=== PATIENT | female | born 1935 | race Caucasian/White ===

== ENCOUNTER 2017-05-19 17:37 | Inpatient (IN) ==
[2017-05-19] MEDS ORDERED: Ondansetron 4 MG/2 ML VIAL IVP ONE (17:40)
[2017-05-19] MEDS ORDERED: 0.9 % Sodium Chloride 1,000 ML IVC ONE (17:40)
[2017-05-19] MEDS ORDERED: *HR* Morphine 2 MG/ML SYRINGE IVP ONE (17:40)
[2017-05-19] MEDS ORDERED: *HR* Morphine 2 MG/ML SYRINGE IVP PRN ×2 (17:44→22:58)
--- NOTE | 2017-05-19 17:45 | Emergency Department Note ---
Disposition Clinical Impression: Elevated troponin, Hiatal hernia Abdominal pain Qualifiers: Abdominal location: left upper quadrant Qualified Code(s): R10.12 - Left upper quadrant pain Cholelithiasis Qualifiers: Cholelithiasis location: gallbladder Cholecystitis presence: without cholecystitis Biliary obstruction: with biliary obstruction Qualified Code(s): K80.21 - Calculus of gallbladder without cholecystitis with obstruction Hypertension Qualifiers: Hypertension type: unspecified Qualified Code(s): I10 - Essential (primary) hypertension Disposition: Admitted As Inpatient Condition: Fair Abdominal Pain HPI - General Chief Complaint: ED Abdominal Pain Stated Complaint: Constipation/ Abdominal pain Time Seen by Provider: 05/19/17 17:38 Source: patient, EMS Mode of arrival: EMS Limitations: age Nursing Notes Reviewed: Yes Vital Signs Reviewed: Yes - History of Present Illness HPI Narrative: 82-year-old female history of dementia, hypertension presents for evaluation of left upper quadrant pain as well as some constipation. Patient was brought in via EMS from [place]. EMS provide additional history stating that the patient did have difficulty stooling over the past 2 days but was given a bowel regimen had normal stools this morning. Patient states the left upper side pain does not radiate. No aggravating or alleviating factors identified. States that she does not take any medicines. Denies any vomiting. Denies any fevers. Reports some chest pain from earlier today. Patient denies any dysuria or difficulty with urination. Patient is a DNR CC. Pt Subjective Complaint: abdominal pain Onset (ago): hour(s) Consistency: constant Location: L flank Improves with: nothing Worsens with: nothing - Related Data Previous Rx's Medication Instructions Recorded Aspirin 81 mg PO DAILY #30 tab.chew 09/16/16 Atorvastatin [Lipitor] 20 mg PO HS #30 tablet 09/16/16 Ferrous Sulfate 325 mg PO DAILY #60 tablet 09/16/16 Sennosides/Docusate Sodium [Senna 1 each PO DAILY #30 tablet 09/16/16 Plus] Allergies Allergy/AdvReac Type Severity Reaction Status Date / Time No Known Allergies Allergy Verified 09/15/16 14:13 All systems ED: reviewed and negative except as stated. Constitutional: Reports: as per HPI. Denies: fever Eyes: Reports: as per HPI ENT ED: Reports: as per HPI Cardiovascular: Reports: as per HPI, chest pain Respiratory: Reports: as per HPI. Denies: dyspnea Gastrointestinal: Reports: as per HPI, abdominal pain, constipation. 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 Absent: respiratory distress - Cardiovascular Cardiovascular exam: Present: regular rate, normal rhythm - Abdominal Exam Abdominal exam: Present: soft, tenderness (Mild midepigastric and left upper quadrant tenderness with deep palpation.), hyperactive bowel sounds. Absent: distention, guarding, rebound - Extremities Exam Extremities exam: Present: normal inspection. Absent: pedal edema - Back Exam Back exam: Present: normal inspection. Absent: CVA tenderness (R), CVA tenderness (L) - Neurological Exam Neurological exam: Present: alert, CN II-XII intact - Skin Skin exam: Present: warm, dry, intact, normal color Course Course Narrative: Patient seen and examined. Patient's in no acute distress. Patient did present from [facility] with a complaint of left upper quadrant pain. Patient's abdominal exam is nonsurgical. Patient also was complaining of chest pain earlier today. Patient is not a reliable historian given her history of Alzheimer's. Patient is a DNR CC. Patient will get basic abdominal lab work including a cardiopulmonary evaluation with EKG and troponin. Patient gets symptomatic treatment with IV fluids and antiemetics and pain control. Patient also given additional imaging of a CT abdomen and pelvis. Disposition pending. - Reevaluation(s) Reevaluation #1: Patient seen and examined. Patient's repeat abdominal exam is unremarkable. Updated on plan of care. Await labs and symptomatically treatment. Time: 18:39 Reevaluation #2: Patient's lab work showed elevated troponin of 0.08. Patient's troponin has been elevated in the past but never quite to this extent. Patient was given aspirin. Time: 18:56 Reevaluation #3: Patient seen and examined. Discussed plan of care with the patient as well as family bedside. All questions were asked at that time. Patient be admitted to the hospitalist service for further evaluation and monitoring. Time: 19:09 Additional Reevaluation(s): 1928: Patient states that the nitroglycerin did help with her chest discomfort. Also helped improve her blood pressure into Systolic 176. Vital Signs Temperature 98 F 05/19/17 17:38 Pulse Rate 80 05/19/17 17:38 Respiratory Rate 16 05/19/17 17:38 Blood Pressure 206/98 05/19/17 17:38 O2 Sat by Pulse Oximetry 96 05/19/17 17:38 Temperature 98 F 05/19/17 17:38 Pulse Rate 81 05/19/17 18:43 Respiratory Rate 16 05/19/17 18:43 Blood Pressure 206/98 05/19/17 17:38 O2 Sat by Pulse Oximetry 93 05/19/17 18:43 Oxygen Delivery Oxygen Delivery Room Air Abdominal Pain - MDM Narrative Medical decision making narrative: 82-year-old female presents for evaluation of chest pain as well as abdominal pain. Patient presented from [place]. Does have baseline Alzheimer's. Patient's abdominal exam was nonsurgical. Given the patient's age and comorbidity conditions laboratory evaluation including a troponin was obtained. Troponin shows elevation of 0.08. Patient's EKG shows no acute abnormalities. Patient does have a left bundle-branch that has been chronic over the past year. Patient's CT the abdomen and pelvis shows no signs of obstruction but does show cholelithiasis with a borderline thickened gallbladder wall. Patient also has a hiatal hernia. The etiology of the patient's pain is uncertain. Possibly cardiac in nature as well as gallbladder. Patient was treated with morphine and nitroglycerin in the emergency department. Patient is also true with IV fluids. Patient had repeat abdominal exams which were unremarkable. Given the certain etiology of the patient's pain with an elevated troponin patient will be admitted to hospitalist for trending troponins as well as symptomatic treatment and observation. Patient's chest pain did improve after nitroglycerin. Patient's blood pressure also improved with nitroglycerin. Patient's CT also shows left lower lobe airspace disease likely atelectasis at this point as the patient has not been having clinical signs and symptoms of pneumonia such as fever and cough. Patient's family at bedside updated on plan of care. - Lab Data Lab results reviewed: Yes I reviewed the patient's lab results. Result diagrams: 05/19/17 18:15 05/19/17 18:15 Lab Results 05/19/17 05/19/17 05/19/17 Range/Units 18:15 18:15 18:15 WBC 13.9 H (4.3-11.1) K/mcL RBC 5.12 H (3.82-4.97) M/mcL Hgb 15.3 (11.5-15.4) g/dL Hct 47.8 H (35.3-44.9) % MCV 93.4 (83.0-100.0) fL MCH 29.9 (28.0-33.3) pg MCHC 32.0 (31.6-35.5) g/dL RDW 13.2 (11.5-14.5) % Plt Count 207 (140-400) K/mcL MPV 10.5 (9.4-12.4) fL Immature Gran % 0.8 (0-4) % Seg Neutrophils % 87.7 % Lymphocytes % 7.5 % Monocytes % 3.5 % Eosinophils % 0.1 % Basophils % 0.4 % Neutrophils # 12.2 H (1.6-8.9) K/mcL Lymphocytes # 1.0 (0.6-4.6) K/mcL Monocytes # 0.5 (0.0-1.3) K/mcL Eosinophils # 0.0 (0.0-0.6) K/mcL Basophils # 0.1 (0.0-0.2) K/mcL Sodium 140 (136-145) mEq/L Potassium 4.5 (3.5-4.5) mEq/L Chloride 102 (98-109) mEq/L Carbon Dioxide 31 H (19-29) mEq/L BUN 17 (7-20) mg/dL Creatinine 0.96 (0.57-1.11) mg/dL Est GFR ( Amer) > 60 (> 60) Est GFR (Non-Af Amer) 55 L (> 60) BUN/Creatinine Ratio 18 (6-26) Glucose 122 H (70-99) mg/dL Calculated Osmolality 293 (280-300) Calcium 10.2 (8.6-10.8) mg/dL Total Bilirubin 0.6 (0.2-1.2) mg/dL Direct Bilirubin 0.2 (0.0-0.5) mg/dL Indirect Bilirubin 0.4 (0.0-1.2) mg/dL AST 26 (5-34) Units/L ALT 20 (0-55) Units/L Alkaline Phosphatase 109 (38-126) Units/L Troponin I 0.08 H* (0-0.03) ng/mL Serum Total Protein 8.0 (6.0-8.3) g/dL Albumin 3.8 (3.5-5.0) g/dL Globulin 4.2 H (2.4-3.5) g/dL Albumin/Globulin Ratio 0.9 L (1.1-2.2) Lipase 26 (8-78) Units/L - Radiology Data Radiology results reviewed: Yes I reviewed the patient's radiology results. Abdomen/Pelvis CT 05/19/17 17:40 IMPRESSION: Cholelithiasis with multiple gallstones. The gallbladder wall may be slightly thickened but is not well evaluated without IV contrast. Follow-up gallbladder ultrasound would be helpful. Moderate descending and sigmoid colon diverticulosis. No definite evidence of diverticulitis. Large hiatal hernia. Left lower lobe airspace disease may represent compressive atelectasis. Pneumonia is not excluded. Lumbar scoliosis with multilevel degenerative disc disease, spondylosis and facet arthropathy. Minimal loss in vertical height of L1 through L4, likely chronic. D/ / Nathanael Pineda MD / Nathanael Pineda MD Interpreting Provider: Nathanael Pineda MD Abdomen/Pelvis CT 05/19/17 17:40 IMPRESSION: Cholelithiasis with multiple gallstones. The gallbladder wall may be slightly thickened but is not well evaluated without IV contrast. Follow-up gallbladder ultrasound would be helpful. Moderate descending and sigmoid colon diverticulosis. No definite evidence of diverticulitis. Large hiatal hernia. Left lower lobe airspace disease may represent compressive atelectasis. Pneumonia is not excluded. Lumbar scoliosis with multilevel degenerative disc disease, spondylosis and facet arthropathy. Minimal loss in vertical height of L1 through L4, likely chronic. D/ / Nathanael Pineda MD / Nathanael Pineda MD Interpreting Provider: Nathanael Pineda MD Chest X-Ray 05/19/17 19:17 IMPRESSION: No acute cardiopulmonary disease. Large retrocardiac hiatal hernia. D/ / Jayesh Todd MD / Jayesh Todd MD Interpreting Provider: Jayesh Todd MD - EKG Data EKG attestation: Yes I reviewed and interpreted this EKG. EKG shows normal: sinus rhythm Rate: normal Rhythm: NSR [place]/QRS: normal, LBBB Interpretation: no acute changes, unchanged when compared to prior tracing (date ) (09/2016) S.B.A.R. - S.B.A.RJose Situation: Demographics Background: Presenting Complaint Assessment: Vital Signs, Course and respsone to treatment, Patient/Family Expectation Recommendation: Barrier(s) to disposition, Recommendation based on pending studies, treatments, or consults S.B.A.R. Report Given to: Dr. León S.B.ALeland Repor Time: 19:27 Attestation Statement - Attestation Attestation: I dr brown examined this patient and my medical decision-making was reviewed with the DRILL PRESSER/PA/Advanced Practice Nurse/Resident Physician. I agree with the documented findings, disposition and treatment plan as described except to the extent set forth below.
[2017-05-19 18:28] LABS: Basophils # 0.1 K/mcL (0.0-0.2); Basophils % 0.4 %; Eosinophils % 0.1 %; Hematocrit 47.8 % (35.3-44.9); Hemoglobin 15.3 g/dL (11.5-15.4); Immature Granulocytes % 0.8 % (0-4); Lymphocytes % 7.5 %; Mean Corpuscular Hemoglobin 29.9 pg (28.0-33.3); Mean Corpuscular Volume 93.4 fL (83.0-100.0); Mean Platelet Volume 10.5 fL (9.4-12.4); Monocytes # 0.5 K/mcL (0.0-1.3); Monocytes % 3.5 %; Neutrophils # 12.2 K/mcL (1.6-8.9); Platelet Count 207 K/mcL (140-400); Red Blood Count 5.12 M/mcL (3.82-4.97); Red Cell Distribution Width 13.2 % (11.5-14.5); Segmented Neutrophils % 87.7 %
[2017-05-19 18:42] LABS: Alanine Aminotransferase 20 Units/L (0-55); Albumin 3.8 g/dL (3.5-5.0); Albumin/Globulin Ratio 0.9 (1.1-2.2); Alkaline Phosphatase 109 Units/L (38-126); Aspartate Amino Transferase 26 Units/L (5-34); BUN/Creatinine Ratio 18 (6-26); Bilirubin,Direct 0.2 mg/dL (0.0-0.5); Bilirubin,Indirect 0.4 mg/dL (0.0-1.2); Bilirubin,Total 0.6 mg/dL (0.2-1.2); Blood Urea Nitrogen 17 mg/dL (7-20); Calcium 10.2 mg/dL (8.6-10.8); Carbon Dioxide 31 mEq/L (19-29); Chloride 102 mEq/L (98-109); Globulin 4.2 g/dL (2.4-3.5); Glucose 122 mg/dL (70-99); Lipase 26 Units/L (8-78); Osmolality,Calculated 293 (280-300); Potassium 4.5 mEq/L (3.5-4.5); Sodium 140 mEq/L (136-145); eGFR For African Americans > 60 (> 60); eGFR For Non-African Americans 55 (> 60)
[2017-05-19] MEDS ORDERED: Aspirin 81 MG TAB.CHEW PO ONE (18:54)
[2017-05-19] MEDS: Nitroglycerin 0.4 MG TAB.SUBL SL PRN ×3 (19:11→19:35)
[2017-05-19 22:42] LABS: Bilirubin,Urine Negative (Negative); Blood,Urine Moderate (Negative); Clarity,Urine Cloudy (Clear); Color,Urine Yellow (Yellow); Glucose,Urine (UA) Normal (Normal); Ketones,Urine Negative (Negative); Leukocyte Esterase,Urine Trace (Negative); Nitrite,Urine Positive (Negative); Protein,Urine 100 mg/dL (Neg-Trace); Urobilinogen,Urine Normal (Normal)
[2017-05-19 22:54] LABS: Renal Epithelial Cells,Urine Few per hpf (None-Few); Squamous Epithelial Cell,Urine Moderate per lpf (None-Few); WBC,Urine 0-3 per hpf (0-3)
[2017-05-19 22:55] LABS: Bacteria,Urine Many per hpf (None-Few); Hyaline Casts,Urine None Seen per lpf (None-Few); Mucus,Urine Few (Few)
[2017-05-19] MEDS ORDERED: Acetaminophen 325 MG TABLET PO PRN (22:58)
[2017-05-19] MEDS ORDERED: Ondansetron 4 MG/2 ML VIAL IVP PRN (22:58)
[2017-05-19] MEDS ORDERED: Naloxone 0.4 MG/ML INJ IVP PRN (22:58)
--- NOTE | 2017-05-19 23:16 | Internal Med History&Physical ---
Date of Encounter: 05/19/17 Time of Encounter: 22:00 Assessment and Plan (1) Elevated troponin Current visit: No Status: Acute 1. Will cycle troponins, EKG's, check ECHO in the morning. 2. Will treat BP. 3. Start BB, ASA, continue STATIN. 4. Patient does not want invasive work-up treatment ([facility]); family confirms. (2) Hypertensive urgency Current visit: Yes Status: Acute 1. Likely cause of troponin elevation. 2. Will treat with Hydralazine and start BB. 3. Monitor closely and adjust regimen accordingly. (3) UTI (urinary tract infection) Current visit: Yes Status: Acute 1. Culture urine. 2. Start IV Rocephin empirically and adjust antibiotics per urine culture results. Qualifiers: Urinary tract infection type: acute cystitis Hematuria presence: without hematuria Qualified Code(s): N30.00 - Acute cystitis without hematuria (4) Abdominal pain Current visit: Yes Status: Acute 1. Suspect GERD etiology. 2. Will treat with PPI. 3. GB ultrasound. 4. Treat constipation. 5. Abdominal exam is benign. Qualifiers: Abdominal location: epigastric Qualified Code(s): R10.13 - Epigastric pain (5) DVT prophylaxis Current visit: Yes Status: Acute 1. Heparin SQ. Internal Medicine - H&P: HPI Chief complaint: abdominal pain, chest pain Admitted From: Emergency Dept Plans for Post Hospital Care: Transfer Jail Care History of present illness: Ms. Art is a 82 year old female who presents to ER with complaints of vague abdominal pain, constipation, and atypical chest pain. She is a resident of [facility], and she was noted by staff that she has not had a bowel movement in the last 2 days when she was complaining of some abdominal pain. She suffers from chronic constipation. She also complained of some chest pains and so patient was sent to the ER. Workup in the ER was negative except for an elevation of her troponin. She was subsequently admitted to the hospitalist service. I met the patient, her [id number], and her granddaughter. Patient suffers from mild to moderate dementia, but she is able to recite her history fairly well and was able to recognize all family members. Based upon her history, her chest pain sounds more like gastric reflux/GERD in etiology. She did bump her troponin, however. Furthermore, her blood pressure is significantly elevated and likely contributing to her troponin leak. Patient is not interested in any aggressive cardiac workup and expresses her DNR CC CODE STATUS to me. Her [id number] was present, and she also confirms those are her prior expressed wishes and that she would not want to have any aggressive intervention performed. Furthermore, regarding her CODE STATUS, daughter-in- law again states the patient would want comfort measures only in the event of a cardiopulmonary arrest. Regarding her workup in the ER, she had some incidental finding of gallstones. We will check an ultrasound of the gallbladder in the morning, and I will treat her GERD symptoms tonight. Meanwhile, we will trend her troponins and treat her presumptive UTI with antibiotics. Patient and family both stated that she has had some foul-smelling urine lately. She has not had any fevers, vomiting, or chills. Patient's son was also present and he confirms all the above as well. Past Med Surg Social Fam HX - Past Medical History Attestation: Yes The following information was validated with the patient. Source: patient, old records reviewed, obtained from family Medical history: coronary artery disease, dementia, hypertension Psychiatric history: no psych history - Past Surgical History Surgical History: no surgical history - Social History Smoking Status: Never smoker Smokeless Tobacco Status: No Alcohol use: none Drug use: none Occupational status: retired Current living situation: ECF - Family History Mother Living Status: Hx Family Cardiac Disorders: Yes Father Living Status: Hx Family Cardiac Disorders: No Internal Medicine - H&P: Meds Aspirin 81 mg PO DAILY #30 tab.chew 09/16/16 [Rx] Atorvastatin [Lipitor] 20 mg PO HS #30 tablet 09/16/16 [Rx] Ferrous Sulfate 325 mg PO DAILY #60 tablet 09/16/16 [Rx] Sennosides/Docusate Sodium [Senna Plus] 1 each PO DAILY #30 tablet 09/16/16 [Rx] Allergies No Known Allergies Allergy (Verified 09/15/16 14:13) - Constitutional Constitutional: no chills, no fever(s), no night sweats - EENT Eyes: no change in vision Ears: no ear pain, no tinnitus Nose, mouth and throat: no sinus pressure, no sore throat - Cardiovascular Cardiovascular ROS IM: chest pain, no diaphoresis, no dyspnea, no dyspnea on exertion, no edema - Respiratory Respiratory: no cough, no dyspnea, no hemoptysis - Gastrointestinal Gastrointestinal: abdominal pain, constipation, heartburn, no diarrhea, no hematemesis, no hematochezia, no melena, no nausea, no vomiting - Genitourinary Genitourinary: dysuria, no flank pain, no hematuria - Musculoskeletal Musculoskeletal ROS IM: no muscle cramps - Integumentary Integumentary IM: no rash - Neurological Neurological ROS: confusion, no dizziness, no frequent falls, no headache(s) - Psychiatric Psychiatric: no anxiety, no depression - Endocrine Endocrine IM: no polydipsia, no polyuria - Allergic/Immunologic Allergic/Immunologic: GI upset with certain foods (spicy) - Constitutional Vitals: Temp Pulse Resp BP Pulse Ox 98.1 F 85 18 200/87 92 05/19/17 21:41 05/19/17 21:41 05/19/17 21:41 05/19/17 21:41 05/19/17 21:41 General appearance: Present: cooperative, A&O X 2, pleasant, no acute distress, answers questions appropriately - Head Head exam: Present: atraumatic, normal inspection - Eye Eye exam: Present: EOMI, normal appearance, PERRL. Absent: scleral icterus Pupils: Present: normal accommodation - ENT ENT exam: Present: mucous membranes dry, normal exam - Neck Neck exam general surgery: Present: full ROM, supple. Absent: lymphadenopathy, tenderness - Expanded Neck Exam Neck exam: Absent: carotid bruit - Respiratory Respiratory exam: Present: CTAB. Absent: chest wall tenderness, rales, rhonchi , wheezes - Cardiovascular Cardiovascular exam: Present: RRR, +S1, +S2. Absent: diastolic murmur, systolic murmur - GI/Abdominal GI/Abdominal exam: Present: normal bowel sounds, soft, tenderness (epigastric area), no peritoneal signs. Absent: guarding, hepatomegaly, mass, rebound, splenomegaly - Extremities Exam Extremities exam: Present: warm. Absent: calf tenderness, full ROM, pedal edema - Back Exam Back exam: Absent: CVA tenderness (L), CVA tenderness (R) - Neurological Exam Neurological exam: Present: alert, CN II-XII intact, no focal deficits. Absent : oriented X3 (X2) - Psychiatric Psychiatric exam: Present: normal affect, normal mood - Skin Skin exam: Present: dry, warm. Absent: rash Internal Med - H&P Results - Labs CBC & Chem 7: 05/19/17 18:15 05/19/17 18:15 Labs: Urine 05/19/17 Range/Units 22:35 Urine Color Yellow (Yellow) Urine Clarity Cloudy A (Clear) Urine pH 7.0 (5.0-8.0) pH Units Ur Specific [place] 1.020 (1.010-1.025) Urine Protein 100 H (Neg-Trace) mg/dL Urine Glucose (UA) Normal (Normal) mg/dL - EKG Data -: EKG Interpreted by Myself - EKG Data Prior EKG available for review: yes When compared to previous EKG: there is no significant change EKG comments: 05/19/17 23:21 Sinus rhythm; LBBB -- old - Diagnostic Studies Chest x-ray Status: image reviewed by me (negative)
[2017-05-20] MEDS: 0.9 % Sodium Chloride 1,000 ML IVC SCH ×2 (00:31→17:07)
[2017-05-20] MEDS: *HR* Heparin 5,000 UNIT/ML VIAL SQ SCH ×3 (00:31→19:14)
[2017-05-20 01:28] LABS: Basophils # 0.1 K/mcL (0.0-0.2); Basophils % 0.3 %; Eosinophils % 0.1 %; Hematocrit 46.8 % (35.3-44.9); Hemoglobin 14.7 g/dL (11.5-15.4); Immature Granulocytes % 0.5 % (0-4); Lymphocytes # 1.2 K/mcL (0.6-4.6); Mean Corpuscular HGB Conc 31.4 g/dL (31.6-35.5); Mean Corpuscular Hemoglobin 29.6 pg (28.0-33.3); Mean Corpuscular Volume 94.2 fL (83.0-100.0); Mean Platelet Volume 10.8 fL (9.4-12.4); Monocytes % 5.7 %; Platelet Count 199 K/mcL (140-400); Red Blood Count 4.97 M/mcL (3.82-4.97); Red Cell Distribution Width 13.4 % (11.5-14.5); Segmented Neutrophils % 86.4 %
[2017-05-20 01:37] LABS: Prothrombin Time 10.6 Seconds (9.4-12.1)
[2017-05-20 01:39] LABS: Activated Partial Thrombo Time 30.9 Seconds (26.0-36.0)
[2017-05-20] MEDS ORDERED: GI Cocktail 40 ML EACH PO ONE (01:58)
[2017-05-20 06:32] LABS: Alanine Aminotransferase 24 Units/L (0-55); Albumin 3.2 g/dL (3.5-5.0); Albumin/Globulin Ratio 0.8 (1.1-2.2); Alkaline Phosphatase 100 Units/L (38-126); Aspartate Amino Transferase 34 Units/L (5-34); BUN/Creatinine Ratio 18 (6-26); Bilirubin,Total 0.5 mg/dL (0.2-1.2); Blood Urea Nitrogen 15 mg/dL (7-20); Calcium 9.3 mg/dL (8.6-10.8); Carbon Dioxide 26 mEq/L (19-29); Chloride 105 mEq/L (98-109); Chol/HDL Ratio 2.7 (0-4.9); Cholesterol 176 mg/dL (< 200); Globulin 3.9 g/dL (2.4-3.5); Glucose 132 mg/dL (70-99); HDL Cholesterol 66 mg/dL (40-59); LDL Cholesterol,Calculated 96 mg/dL (0-99); Magnesium 2.1 mg/dL (1.6-2.6); Osmolality,Calculated 289 (280-300); Potassium 4.4 mEq/L (3.5-4.5); Sodium 138 mEq/L (136-145); Total Protein 7.1 g/dL (6.0-8.3); Triglycerides 69 mg/dL (< 150); eGFR For African Americans > 60 (> 60); eGFR For Non-African Americans > 60 (> 60)
[2017-05-20] MEDS: Aspirin 81 MG TAB.CHEW PO SCH (08:08)
--- NOTE | 2017-05-20 17:12 | Internal Med Progress Note ---
Date of Encounter: 05/20/17 Time of Encounter: 13:30 - Assessment and plan (1) Abdominal pain Current Visit: Yes Status: Acute Assessment and plan: Patient reports right upper quadrant pain. WBC 17.3. Urinalysis is positive for infection. Normal AST, ALT, bilirubin and alkaline phosphatase. CT of the abdomen and pelvis revealed cholelithiasis with multiple gallstones, moderate ascending and sigmoid colon diverticulosis, large hiatal hernia, left lower lobe atelectasis, lumbar scoliosis. Abdominal pain could be secondary to UTI, large hiatal hernia versus gallbladder disease. NPO. Check gallbladder ultrasound. Continue IV fluids, PPI and empiric antibiotics. Qualifiers: Abdominal location: right upper quadrant Qualified Code(s): R10.11 - Right upper quadrant pain (2) Hypertensive urgency Current Visit: Yes Status: Acute Assessment and plan: In ED, her Blood pressure was 206/98. She received IV morphine. BP is adequate. (3) Elevated troponin Current Visit: Yes Status: Acute Assessment and plan: Troponin peaked at 0.40. Likely due to demand ischemia. Echocardiogram revealed LVEF 50%, mild concentric LVH, mild LV diastolic dysfunction, moderate pulmonary hypertension, no significant valvular dysfunction. Continue medical management including aspirin, Lipitor and metoprolol. Family does not want any intervention. (4) CAD (coronary artery disease) Current Visit: No Status: Chronic Assessment and plan: Continue home medications. shelter monitor. Qualifiers: Coronary Disease-Associated Artery/Lesion type: [place] artery [place] vs. transplanted heart: [place] heart Associated angina: without angina Qualified Code(s): I25.10 - Atherosclerotic heart disease of [place] coronary artery without angina pectoris (5) Cholelithiasis Current Visit: Yes Status: Acute Assessment and plan: Plan as above. Qualifiers: Cholelithiasis location: gallbladder Cholecystitis presence: without cholecystitis Biliary obstruction: with biliary obstruction Qualified Code(s ): K80.21 - Calculus of gallbladder without cholecystitis with obstruction (6) Hiatal hernia Current Visit: Yes Status: Chronic Assessment and plan: Plan as above. (7) UTI (urinary tract infection) Current Visit: Yes Status: Acute Assessment and plan: As above. Follow-up urine culture. Continue empiric antibiotics. Qualifiers: Urinary tract infection type: acute cystitis Hematuria presence: without hematuria Qualified Code(s): N30.00 - Acute cystitis without hematuria (8) Dementia Current Visit: Yes Status: Chronic Assessment and plan: Patient is DNR comfort care. Qualifiers: Dementia type: Alzheimer's disease Alzheimer's disease onset: unspecified onset Dementia behavioral disturbance: without behavioral disturbance Qualified Code(s): G30.9 - Alzheimer's disease, unspecified; F02.80 - Dementia in other diseases classified elsewhere without behavioral disturbance - Subjective Interval history: Patient reports mild right upper quadrant pain. No nausea. No vomiting. - Constitutional Vitals: Temp Pulse Resp BP Pulse Ox 98.8 F 76 18 158/67 94 05/20/17 16:22 05/20/17 16:22 05/20/17 16:22 05/20/17 16:22 05/20/17 16:22 General appearance: Present: cooperative, A&O X 2, pleasant, no acute distress, answers questions appropriately - Eye Eye exam: Present: PERRL, sclera anicteric - Neck Neck exam general surgery: Present: supple, trachea midline. Absent: lymphadenopathy - Respiratory Respiratory exam: Present: CTAB - Cardiovascular Cardiovascular exam: Present: RRR - GI/Abdominal GI/Abdominal exam: Present: normal bowel sounds, soft, tenderness (Right upper quadrant tenderness. No guarding. No rebound.). Absent: distended - Extremities Exam Extremities exam: Absent: pedal edema - Back Exam Back exam: Absent: CVA tenderness (L), CVA tenderness (R) - Neurological Exam Neurological exam: Present: alert. Absent: facial droop, speech deficit - Skin Skin exam: Absent: rash Internal Medicine: Result - Labs CBC & Chem 7: 05/20/17 00:34 05/20/17 06:02 Labs: Short CBC 05/20/17 Range/Units 00:34 WBC 17.3 H (4.3-11.1) K/mcL Hgb 14.7 (11.5-15.4) g/dL Hct 46.8 H (35.3-44.9) % Plt Count 199 (140-400) K/mcL Neutrophils # 15.0 H (1.6-8.9) K/mcL BMP 05/20/17 06:02 Sodium 138 Potassium 4.4 Chloride 105 Carbon Dioxide 26 BUN 15 Creatinine 0.83 Glucose 132 H Calcium 9.3 Cardiac Enzymes 05/20/17 05/20/17 Range/Units 00:34 06:02 Troponin I 0.44 H* 0.40 H* (0-0.03) ng/mL Liver Function 05/20/17 Range/Units 06:02 Total Bilirubin 0.5 (0.2-1.2) mg/dL AST 34 (5-34) Units/L ALT 24 (0-55) Units/L Alkaline Phosphatase 100 (38-126) Units/L Albumin 3.2 L (3.5-5.0) g/dL Urine 05/19/17 Range/Units 22:35 Urine Color Yellow (Yellow) Urine Clarity Cloudy A (Clear) Urine pH 7.0 (5.0-8.0) pH Units Ur Specific [place] 1.020 (1.010-1.025) Urine Protein 100 H (Neg-Trace) mg/dL Urine Glucose (UA) Normal (Normal) mg/dL - ABG Interpretation ABG results: PT/INR, D-dimer PT 10.6 Seconds (9.4-12.1) 05/20/17 00:34 Consult Discharge Plan - Plan Referrals: Kings Reinoso MD [Primary Care Provider] - (will follow up with patient at [facility] )
[2017-05-21 05:35] LABS: Basophils # 0.1 K/mcL (0.0-0.2); Basophils % 0.3 %; Eosinophils % 0.1 %; Hematocrit 43.1 % (35.3-44.9); Hemoglobin 13.4 g/dL (11.5-15.4); Immature Granulocytes % 0.5 % (0-4); Lymphocytes # 1.5 K/mcL (0.6-4.6); Lymphocytes % 6.5 %; Mean Corpuscular HGB Conc 31.1 g/dL (31.6-35.5); Mean Corpuscular Hemoglobin 29.7 pg (28.0-33.3); Mean Corpuscular Volume 95.6 fL (83.0-100.0); Monocytes % 8.3 %; Neutrophils # 20.1 K/mcL (1.6-8.9); Platelet Count 187 K/mcL (140-400); Red Blood Count 4.51 M/mcL (3.82-4.97); Red Cell Distribution Width 14.2 % (11.5-14.5); Segmented Neutrophils % 84.3 %
[2017-05-21] MEDS: *HR* Heparin 5,000 UNIT/ML VIAL SQ SCH ×2 (05:46→17:01)
[2017-05-21 05:50] LABS: Alanine Aminotransferase 35 Units/L (0-55); Albumin 2.6 g/dL (3.5-5.0); Albumin/Globulin Ratio 0.7 (1.1-2.2); Alkaline Phosphatase 94 Units/L (38-126); Aspartate Amino Transferase 43 Units/L (5-34); BUN/Creatinine Ratio 17 (6-26); Bilirubin,Direct 0.4 mg/dL (0.0-0.5); Bilirubin,Indirect 0.5 mg/dL (0.0-1.2); Blood Urea Nitrogen 14 mg/dL (7-20); Calcium 9.2 mg/dL (8.6-10.8); Carbon Dioxide 29 mEq/L (19-29); Chloride 105 mEq/L (98-109); Globulin 3.9 g/dL (2.4-3.5); Glucose 136 mg/dL (70-99); Magnesium 2.1 mg/dL (1.6-2.6); Osmolality,Calculated 289 (280-300); Potassium 4.2 mEq/L (3.5-4.5); Sodium 138 mEq/L (136-145); Total Protein 6.5 g/dL (6.0-8.3); eGFR For African Americans > 60 (> 60); eGFR For Non-African Americans > 60 (> 60)
[2017-05-21 05:51] LABS: Bilirubin,Total 0.9 mg/dL (0.2-1.2)
[2017-05-21] MEDS: Folic Acid 1 MG TABLET PO SCH (08:48)
[2017-05-21] MEDS: Aspirin 81 MG TAB.CHEW PO SCH (08:48)
[2017-05-21] MEDS: 0.9 % Sodium Chloride 1,000 ML IVC SCH (09:47)
[2017-05-21 11:06] LABS: Basophils % 0.2 %; Eosinophils % 0.1 %; Hematocrit 41.9 % (35.3-44.9); Hemoglobin 13.2 g/dL (11.5-15.4); Immature Granulocytes % 0.6 % (0-4); Lymphocytes # 1.6 K/mcL (0.6-4.6); Mean Corpuscular HGB Conc 31.5 g/dL (31.6-35.5); Mean Corpuscular Hemoglobin 29.5 pg (28.0-33.3); Mean Corpuscular Volume 93.7 fL (83.0-100.0); Mean Platelet Volume 10.5 fL (9.4-12.4); Monocytes # 1.8 K/mcL (0.0-1.3); Monocytes % 7.9 %; Neutrophils # 18.8 K/mcL (1.6-8.9); Platelet Count 170 K/mcL (140-400); Red Blood Count 4.47 M/mcL (3.82-4.97); Red Cell Distribution Width 14.2 % (11.5-14.5); Segmented Neutrophils % 84.2 %
--- NOTE | 2017-05-21 15:07 | Electrocardiograph Report ---
[place] [id number] Test Date: 2017-05-19 Pat Name: Malena Art Department: 104 Room: [facility] Gender: F Neuroradiologist: PERRI : [id number] Requested By: Geovanni Kimble Order Number: [id number] Reading MD: Stevan Carmona MD Measurements Intervals Howard Rate: 82 P: 73 SC: 139 QRS: 11 QRSD: 141 T: 125 QT: 405 QTc: 443 Interpretive Statements SINUS RHYTHM LEFT BUNDLE BRANCH BLOCK Electronically Signed On 05-21-2017 15:06:28 EDT by Stevan Carmona MD
--- NOTE | 2017-05-21 17:34 | Internal Med Progress Note ---
Date of Encounter: 05/21/17 Time of Encounter: 14:00 - Assessment and plan (1) UTI (urinary tract infection) Current Visit: Yes Status: Acute Assessment and plan: Urine culture growing gram-negative marcus. Due to leukocytosis, I will change ceftriaxone for Zosyn. Close monitor. Today, I spoke to her son Mr. Colindres and updated him on the patient's diagnosis, treatment options and prognosis. He verbalized understanding and agreed with the plan. All questions answered. Qualifiers: Urinary tract infection type: acute cystitis Hematuria presence: without hematuria Qualified Code(s): N30.00 - Acute cystitis without hematuria (2) Abdominal pain Current Visit: Yes Status: Acute Assessment and plan: Resolved. Could be secondary to UTI. Patient reports right upper quadrant pain. WBC 17.3. Urinalysis is positive for infection. Normal AST, ALT, bilirubin and alkaline phosphatase. CT of the abdomen and pelvis revealed cholelithiasis with multiple gallstones, moderate ascending and sigmoid colon diverticulosis, large hiatal hernia, left lower lobe atelectasis, lumbar scoliosis. Ultrasound of gallbladder showed gall stones and wall thickening. Patient is tolerating well her diet. If she continues to tolerate her diet there is no need for any surgery consultation. Will monitor. Will stop IV fluids. Continue PPI and empiric antibiotics. Qualifiers: Abdominal location: right upper quadrant Qualified Code(s): R10.11 - Right upper quadrant pain (3) Hypertensive urgency Current Visit: Yes Status: Acute Assessment and plan: In ED, her Blood pressure was 206/98. She received IV morphine. BP is adequate. (4) Elevated troponin Current Visit: Yes Status: Acute Assessment and plan: Troponin peaked at 0.40. Likely due to demand ischemia. Echocardiogram revealed LVEF 50%, mild concentric LVH, mild LV diastolic dysfunction, moderate pulmonary hypertension, no significant valvular dysfunction. Continue medical management including aspirin, Lipitor and metoprolol. Family does not want any intervention. (5) CAD (coronary artery disease) Current Visit: No Status: Chronic Assessment and plan: Continue home medications. secured entrance monitor. Qualifiers: Coronary Disease-Associated Artery/Lesion type: [place] artery [place] vs. transplanted heart: [place] heart Associated angina: without angina Qualified Code(s): I25.10 - Atherosclerotic heart disease of [place] coronary artery without angina pectoris (6) Cholelithiasis Current Visit: Yes Status: Acute Assessment and plan: Plan as above. Qualifiers: Cholelithiasis location: gallbladder Cholecystitis presence: without cholecystitis Biliary obstruction: with biliary obstruction Qualified Code(s ): K80.21 - Calculus of gallbladder without cholecystitis with obstruction (7) Hiatal hernia Current Visit: Yes Status: Chronic Assessment and plan: Plan as above. (8) Dementia Current Visit: Yes Status: Chronic Assessment and plan: Patient is DNR comfort care. Qualifiers: Dementia type: Alzheimer's disease Alzheimer's disease onset: unspecified onset Dementia behavioral disturbance: without behavioral disturbance Qualified Code(s): G30.9 - Alzheimer's disease, unspecified; F02.80 - Dementia in other diseases classified elsewhere without behavioral disturbance - Subjective Interval history: Patient denies any chest pain or abdominal pain. She feels better. She ate some of her dinner yesterday evening. No nausea. No vomiting. - Constitutional Vitals: Temp Pulse Resp BP Pulse Ox 98.8 F 71 16 181/75 90 05/21/17 17:14 05/21/17 17:14 05/21/17 17:14 05/21/17 17:14 05/21/17 17:14 General appearance: Present: cooperative, A&O X 2, pleasant, no acute distress, answers questions appropriately - Neck Neck exam general surgery: Present: supple, trachea midline. Absent: lymphadenopathy - Respiratory Respiratory exam: Present: CTAB - Cardiovascular Cardiovascular exam: Present: RRR - GI/Abdominal GI/Abdominal exam: Present: normal bowel sounds, soft. Absent: distended, tenderness - Extremities Exam Extremities exam: Absent: pedal edema - Back Exam Back exam: Absent: CVA tenderness (L), CVA tenderness (R) - Neurological Exam Neurological exam: Present: alert, no focal deficits, strengths equal and symetr throughout. Absent: facial droop, speech deficit - Skin Skin exam: Absent: rash Internal Medicine: Result - Labs CBC & Chem 7: 05/21/17 10:56 05/21/17 04:31 Labs: Short CBC 05/21/17 05/21/17 Range/Units 04:31 10:56 WBC 23.8 H 22.3 H (4.3-11.1) K/mcL Hgb 13.4 13.2 (11.5-15.4) g/dL Hct 43.1 41.9 (35.3-44.9) % Plt Count 187 170 (140-400) K/mcL Neutrophils # 20.1 H 18.8 H (1.6-8.9) K/mcL BMP 05/21/17 04:31 Sodium 138 Potassium 4.2 Chloride 105 Carbon Dioxide 29 BUN 14 Creatinine 0.84 Glucose 136 H Calcium 9.2 Liver Function 05/21/17 Range/Units 04:31 Total Bilirubin 0.9 D (0.2-1.2) mg/dL Direct Bilirubin 0.4 (0.0-0.5) mg/dL AST 43 H (5-34) Units/L ALT 35 (0-55) Units/L Alkaline Phosphatase 94 (38-126) Units/L Albumin 2.6 L (3.5-5.0) g/dL - ABG Interpretation ABG results: PT/INR, D-dimer PT 10.6 Seconds (9.4-12.1) 05/20/17 00:34 - Impressions Impressions Gallbladder Ultrasound 05/21/17 08:00 IMPRESSION: 1. Multiple stones are seen within the gallbladder with gallbladder wall thickening. No sonographic Briggs's sign. 2. No additional sonographic abnormality within the visualized right upper quadrant. D/ / Yogi Pulliam MD / Yogi Pulliam MD Interpreting Provider: Yogi Pulliam MD Consult Discharge Plan - Plan Referrals: Kings Reinoso MD [Primary Care Provider] - (will follow up with patient at replaced [facility] )
[2017-05-22 05:46] LABS: Basophils % 0.2 %; Eosinophils % 0.2 %; Hematocrit 41.3 % (35.3-44.9); Hemoglobin 12.8 g/dL (11.5-15.4); Immature Granulocytes % 0.5 % (0-4); Lymphocytes # 0.3 K/mcL (0.6-4.6); Lymphocytes % 2.8 %; Mean Corpuscular Hemoglobin 29.1 pg (28.0-33.3); Mean Corpuscular Volume 93.9 fL (83.0-100.0); Mean Platelet Volume 10.9 fL (9.4-12.4); Monocytes # 0.2 K/mcL (0.0-1.3); Monocytes % 1.2 %; Neutrophils # 11.7 K/mcL (1.6-8.9); Platelet Count 149 K/mcL (140-400); Segmented Neutrophils % 95.1 %
[2017-05-22 05:59] LABS: BUN/Creatinine Ratio 19 (6-26); Blood Urea Nitrogen 15 mg/dL (7-20); Calcium 8.9 mg/dL (8.6-10.8); Carbon Dioxide 28 mEq/L (19-29); Chloride 105 mEq/L (98-109); Glucose 100 mg/dL (70-99); Magnesium 1.9 mg/dL (1.6-2.6); Osmolality,Calculated 285 (280-300); Potassium 4.1 mEq/L (3.5-4.5); Sodium 137 mEq/L (136-145); eGFR For African Americans > 60 (> 60); eGFR For Non-African Americans > 60 (> 60)
[2017-05-22] MEDS: *HR* Heparin 5,000 UNIT/ML VIAL SQ SCH ×2 (06:04→16:21)
[2017-05-22] MEDS: Folic Acid 1 MG TABLET PO SCH (08:14)
[2017-05-22] MEDS: Aspirin 81 MG TAB.CHEW PO SCH (08:15)
--- NOTE | 2017-05-22 16:27 | Discharge Summary ---
Date of Encounter: 05/22/17 Time of Encounter: 16:25 - Discharge Diagnosis (1) UTI (urinary tract infection) Priority: Primary Status: Acute Qualifiers: Urinary tract infection type: acute cystitis Hematuria presence: without hematuria Qualified Code(s): N30.00 - Acute cystitis without hematuria (2) Abdominal pain Priority: Primary Status: Resolved Qualifiers: Abdominal location: right upper quadrant Qualified Code(s): R10.11 - Right upper quadrant pain (3) Hypertensive urgency Priority: Primary Status: Resolved (4) Elevated troponin Priority: Primary Status: Acute (5) CAD (coronary artery disease) Priority: Secondary Status: Chronic Qualifiers: Coronary Disease-Associated Artery/Lesion type: [place] artery [place] vs. transplanted heart: [place] heart Associated angina: without angina Qualified Code(s): I25.10 - Atherosclerotic heart disease of [place] coronary artery without angina pectoris (6) Cholelithiasis Priority: Primary Status: Chronic Qualifiers: Cholelithiasis location: gallbladder Cholecystitis presence: without cholecystitis Biliary obstruction: with biliary obstruction Qualified Code(s ): K80.21 - Calculus of gallbladder without cholecystitis with obstruction (7) Hiatal hernia Priority: Primary Status: Chronic (8) Dementia Priority: Secondary Status: Chronic Qualifiers: Dementia type: Alzheimer's disease Alzheimer's disease onset: unspecified onset Dementia behavioral disturbance: without behavioral disturbance Qualified Code(s): G30.9 - Alzheimer's disease, unspecified; F02.80 - Dementia in other diseases classified elsewhere without behavioral disturbance - Discharge Medications Prescriptions: cephALEXin [Keflex] 500 mg PO BID #10 capsule Home Medications: Atorvastatin [Lipitor] 20 mg PO HS #30 tablet 09/16/16 [Rx] Cyanocobalamin (B-12) [Vitamin B12] 1,000 mcg IM QMONTH 05/20/17 [History] Ferrous Gluconate 325 mg PO DAILY 05/20/17 [History] Folic Acid 1 mg PO DAILY 05/20/17 [History] Magnesium Hydroxide [Milk of Magnesia] 400 mg PO DAILY PRN 05/20/17 [History] Sennosides/Docusate Sodium [Senna Plus] 2 tab PO DAILY 05/20/17 [History] Aspirin 81 mg PO DAILY 05/22/17 [Rx] Metoprolol [Lopressor] 12.5 mg PO BID tab 05/22/17 [Rx] Omeprazole [PriLOSEC] 20 mg PO BIDWM 05/22/17 [Rx] cephALEXin [Keflex] 500 mg PO BID #10 capsule 05/22/17 [Rx] Allergies/Adverse Reactions: Allergies No Known Allergies Allergy (Verified 09/15/16 14:13) Date of admission: 05/21/17 15:19 Primary care physician: Kings Reinoso MD - Patient Status Disposition: Transfer SNF Condition: Good Functional capacity at discharge: uses cane/walker Overall status at discharge: patient is progressing back to baseline - Discharge Instructions Follow Up With: Kings Reinoso MD [Primary Care Provider] - (will follow up with patient at [facility] ) - Diet and Activity Activity: resume usual activities as tolerated, wear oxygen at all times Diet: low salt diet Interval History: Patient denies any abdominal pain. No cough. No shortness of breath. Hospital course: Ms. Art is a 82 year old female with past medical history of CAD, hypertension and advanced dementia who lives in a [facility] and was sent due to abdominal pain. In our ED, her blood pressure was 206/98. She received IV morphine and since then her blood pressure has been adequately. Urinalysis positive for infection. She was started on empiric antibiotics. CT of the abdomen and pelvis revealed cholelithiasis with multiple gallstones, moderate ascending and sigmoid colon diverticulitis, large hiatal hernia, left lower lobe atelectasis and lumbar scoliosis. Ultrasound of gallbladder revealed gallstones and wall thickening. Urine culture grew pansensitive Escherichia coli. Her symptoms resolved and she was tolerating well her diet. Plan: Strict low fat diet. Continue PPI twice a day for large hiatal hernia. Continue empiric antibiotics for 5 more days. - Time Spent with Patient Total time spent providing and/or coordinating discharge services: - Constitutional Vitals: Temp Pulse Resp BP Pulse Ox 98.8 F 65 22 122/72 93 05/22/17 11:15 05/22/17 11:15 05/22/17 11:15 05/22/17 11:15 05/22/17 11:15 General appearance: Present: cooperative, A&O X 2, pleasant, no acute distress, answers questions appropriately - Respiratory Respiratory exam: Present: CTAB - Cardiovascular Cardiovascular exam: Present: RRR - GI/Abdominal GI/Abdominal exam: Present: normal bowel sounds, soft. Absent: distended, tenderness - Extremities Exam Extremities exam: Absent: pedal edema - Neurological Exam Neurological exam: Present: no focal deficits, strengths equal and symetr throughout. Absent: facial droop, speech deficit
[2017-05-22 16:31] VITALS: BP 131/66
--- NOTE | 2017-05-22 16:35 | Physician Discharge Referral ---
ExtendedCare Referral Info Transfer To: [facility] Provider in Charge: hugo Provider in Charge after Transfer: PCP Institutional Level of Care: Skilled - Diagnosis (1) UTI (urinary tract infection) Status: Acute (2) Abdominal pain Status: Resolved (3) Hypertensive urgency Status: Resolved (4) Elevated troponin Status: Acute (5) CAD (coronary artery disease) Status: Chronic (6) Cholelithiasis Status: Chronic (7) Hiatal hernia Status: Chronic (8) Dementia Status: Chronic - Transfer Medications Prescriptions: cephALEXin [Keflex] 500 mg PO BID #10 capsule Home Medications: Atorvastatin [Lipitor] 20 mg PO HS #30 tablet 09/16/16 [Rx] Cyanocobalamin (B-12) [Vitamin B12] 1,000 mcg IM QMONTH 05/20/17 [History] Ferrous Gluconate 325 mg PO DAILY 05/20/17 [History] Folic Acid 1 mg PO DAILY 05/20/17 [History] Magnesium Hydroxide [Milk of Magnesia] 400 mg PO DAILY PRN 05/20/17 [History] Sennosides/Docusate Sodium [Senna Plus] 2 tab PO DAILY 05/20/17 [History] Aspirin 81 mg PO DAILY 05/22/17 [Rx] Metoprolol [Lopressor] 12.5 mg PO BID tab 05/22/17 [Rx] Omeprazole [PriLOSEC] 20 mg PO BIDWM 05/22/17 [Rx] cephALEXin [Keflex] 500 mg PO BID #10 capsule 05/22/17 [Rx] Allergies/Adverse Reactions: Allergies No Known Allergies Allergy (Verified 09/15/16 14:13) - Respiratory Orders Oxygen / L per min (2-3) Smoking Cessation: Smoking cessation has been advised. For more information, call the [place] Tobacco Quit Line at 6-869-DCMB-NOW. - Advance Directives Code Status: DNR-Comfort Care - Mobility Orders Other (per PT) - Rehabiliation Orders Rehab Potential: Poor - Treatments Skin tear care topically daily PRN per policy, May check for fecal impaction rectally daily PRN, Fleet enema rectally every other day PRN cleansing purposes - Diet Orders No Added Salt (GABY), Cardiac CERTIFICATION: I certify that the transfer of the above named patient to an Extended Care Facility is necessary for the continuing treatment of the diagnosis listed. The above information is true and accurate reflection of patient's current condition. Confidential - Redisclosure prohibited without a patient's written consent.
[2017-05-22] MEDS ORDERED: Piperacillin/Tazobactam 3.375 GM in D5% in Water (Mini-Bag+) 100 ML IVPB SCH (17:29)
== END 2017-05-22 18:17 | DRG 690 ==
LOC: 2ANU 17:37 → EMEROO 17:37 → SUATTDRO 19:51 → 2ANU 20:50
PROVIDERS: ADMIT Pediatrics; ATTEND Internal Medicine

== ENCOUNTER 2020-10-18 18:55 | Inpatient (IN) ==
[2020-10-18 22:01] LABS: Mean Corpuscular HGB Conc 30.6 g/dL (31.6-35.5); Mean Corpuscular Hemoglobin 30.1 pg (28.0-33.3); Mean Platelet Volume 13.2 fL (9.4-12.4); Red Cell Distribution Width 13.8 % (11.5-14.5)
[2020-10-18 22:03] LABS: Basophils # 0.1 K/mcL (0.0-0.2); Basophils % 0.4 %; Eosinophils # 0.2 K/mcL (0.0-0.6); Eosinophils % 1.6 %; Hematocrit 49.3 % (35.3-44.9); Hemoglobin 15.1 g/dL (11.5-15.4); Immature Granulocytes % 0.4 % (0-4); Lymphocytes # 2.2 K/mcL (0.6-4.6); Lymphocytes % 19.4 %; Mean Corpuscular Volume 98.2 fL (83.0-100.0); Monocytes # 0.7 K/mcL (0.0-1.3); Monocytes % 6.4 %; Neutrophils # 8.1 K/mcL (1.6-8.9); Platelet Count 163 K/mcL (140-400); Red Blood Count 5.02 M/mcL (3.82-4.97); Segmented Neutrophils % 71.8 %; White Blood Count 11.3 K/mcL (4.3-11.1)
[2020-10-18 22:19] LABS: BUN/Creatinine Ratio 28 (6-26); Blood Urea Nitrogen 22 mg/dL (8-23); Calcium 9.7 mg/dL (8.6-10.3); Carbon Dioxide 25 mEq/L (23-29); Chloride 107 mEq/L (98-107); Glucose 107 mg/dL (70-105); Osmolality,Calculated 296 (280-300); Potassium 3.8 mEq/L (3.5-5.1); Sodium 141 mEq/L (136-145); eGFR For African Americans > 60 (> 60); eGFR For Non-African Americans > 60 (> 60)
[2020-10-18] MEDS ORDERED: Ondansetron 4 MG/2 ML VIAL IVP PRN (22:50)
[2020-10-18] MEDS ORDERED: Naloxone 0.4 MG/ML INJ IVP PRN (22:50)
[2020-10-19 01:20] LABS: Hematocrit 51.5 % (35.3-44.9); Hemoglobin 16.1 g/dL (11.5-15.4); Mean Corpuscular HGB Conc 31.3 g/dL (31.6-35.5); Mean Corpuscular Hemoglobin 30.4 pg (28.0-33.3); Mean Corpuscular Volume 97.2 fL (83.0-100.0); Mean Platelet Volume 12.2 fL (9.4-12.4); Platelet Count 142 K/mcL (140-400); Red Cell Distribution Width 13.5 % (11.5-14.5); White Blood Count 13.4 K/mcL (4.3-11.1)
[2020-10-19 01:26] LABS: BUN/Creatinine Ratio 26 (6-26); Blood Urea Nitrogen 19 mg/dL (8-23); Calcium 9.6 mg/dL (8.6-10.3); Carbon Dioxide 21 mEq/L (23-29); Chloride 107 mEq/L (98-107); Creatine Kinase 65 Units/L (30-223); Glucose 131 mg/dL (70-105); Magnesium 1.8 mg/dL (1.6-2.6); Osmolality,Calculated 292 (280-300); Phosphorous 2.2 mg/dL (2.7-4.5); Sodium 139 mEq/L (136-145); eGFR For African Americans > 60 (> 60); eGFR For Non-African Americans > 60 (> 60)
[2020-10-19 03:00] LABS: Adenovirus Not Detected (Not Detect); Coronavirus 229E Not Detected (Not Detect); Coronavirus HKU1 Not Detected (Not Detect); Coronavirus NL63 Not Detected (Not Detect); Coronavirus OC43 Not Detected (Not Detect); SARS-CoV-2 Not Detected (Not Detect)
[2020-10-19 03:01] LABS: Bordetella Pertussis Not Detected (Not Detect); Chlamydophila pneumoniae Not Detected (Not Detect); Human Metapneumovirus Not Detected (Not Detect); Human Rhinovirus/Enterovirus Not Detected (Not Detect); Influenza A Subtype 2009 H1 Not Detected (Not Detect); Influenza B Not Detected (Not Detect); Mycoplasma pneumoniae Not Detected (Not Detect); Parainfluenza Virus 1 Not Detected (Not Detect); Parainfluenza Virus 2 Not Detected (Not Detect); Parainfluenza Virus 3 Not Detected (Not Detect); Parainfluenza Virus 4 Not Detected (Not Detect); Respiratory Syncytial Virus Not Detected (Not Detect)
[2020-10-19] MEDS ORDERED: 0.9 % Sodium Chloride 1,000 ML IVC ONE (03:22)
[2020-10-19 03:47] LABS: Bacteria,Urine Few per hpf (None-Few); Bilirubin,Urine Negative (Negative); Blood,Urine Trace (Negative); Calcium Oxalate Crystals,Urine Present; Clarity,Urine Clear (Clear); Color,Urine Yellow (Yellow); Glucose,Urine (UA) Normal (Normal); Ketones,Urine Negative (Negative); Leukocyte Esterase,Urine Negative (Negative); Mucus,Urine Few per lpf (None-Few); Nitrite,Urine Negative (Negative); PH,Urine 5.5 pH Units (5.0-8.0); Protein,Urine 50 mg/dL (Neg-Trace); Specific Gravity,Urine 1.029 (1.010-1.025); Squamous Epithelial Cell,Urine Few per hpf (None-Few); Urobilinogen,Urine Normal (Normal)
[2020-10-19] MEDS: 0.9 % Sodium Chloride 1,000 ML IVC SCH ×2 (06:19→23:04)
[2020-10-19] MEDS: Piperacillin/Tazobactam 3.375 GM in 0.9 % Sodium Chloride Mini Bag 100 ML IVPB SCH ×3 (08:00→23:04)
[2020-10-20 07:31] LABS: Basophils % 0.5 %; Eosinophils # 0.3 K/mcL (0.0-0.6); Eosinophils % 3.3 %; Hemoglobin 13.2 g/dL (11.5-15.4); Immature Granulocytes % 0.2 % (0-4); Immature Platelets 10.3 % (1.1-6.1); Lymphocytes % 24.9 %; Mean Corpuscular HGB Conc 30.7 g/dL (31.6-35.5); Mean Corpuscular Hemoglobin 30.7 pg (28.0-33.3); Mean Platelet Volume 12.3 fL (9.4-12.4); Monocytes # 0.9 K/mcL (0.0-1.3); Monocytes % 10.4 %; Red Cell Distribution Width 14.1 % (11.5-14.5); Segmented Neutrophils % 60.7 %; White Blood Count 8.2 K/mcL (4.3-11.1)
[2020-10-20 07:48] LABS: BUN/Creatinine Ratio 18 (6-26); Blood Urea Nitrogen 12 mg/dL (8-23); Calcium 8.7 mg/dL (8.6-10.3); Carbon Dioxide 27 mEq/L (23-29); Chloride 111 mEq/L (98-107); Glucose 98 mg/dL (70-105); Osmolality,Calculated 294 (280-300); Sodium 142 mEq/L (136-145); eGFR For African Americans > 60 (> 60); eGFR For Non-African Americans > 60 (> 60)
[2020-10-20] MEDS: Piperacillin/Tazobactam 3.375 GM in 0.9 % Sodium Chloride Mini Bag 100 ML IVPB SCH ×2 (08:10→16:16)
[2020-10-20 08:22] LABS: Platelet Count 94 K/mcL (140-400)
[2020-10-20] MEDS ORDERED: Cholecalciferol (D-3) 1,000 UNIT (25MCG) TABLET PO SCH (09:00)
[2020-10-20] MEDS ORDERED: Aspirin 81 MG TAB.CHEW PO SCH (09:00)
[2020-10-20] MEDS ORDERED: Ascorbic Acid 500 MG TABLET PO SCH (09:00)
[2020-10-20] MEDS ORDERED: Folic Acid 1 MG TABLET PO SCH (09:00)
[2020-10-20] MEDS ORDERED: Dexamethasone 4 MG/ML VIAL ONE (16:40)
[2020-10-20] MEDS ORDERED: *HR* FentaNYL (PF) 100 MCG/2 ML VIAL ONE (16:40)
[2020-10-20] MEDS ORDERED: *HR* Succinylcholine 200 MG/10 ML VIAL IVP ONE (16:40)
[2020-10-20] MEDS ORDERED: Lidocaine HCL 4 ML Topical Solution (Laryng-O-Jet Kit Sterile Pak) TP ONE (16:40)
[2020-10-20] MEDS ORDERED: Lidocaine -MPF 2% 2 ML VIAL ONE (16:40)
[2020-10-20] MEDS ORDERED: *HR* Propofol 200 MG/20 ML VIAL IVP ONE (16:40)
[2020-10-20] MEDS ORDERED: Ondansetron 4 MG/2 ML VIAL ONE (16:40)
[2020-10-20] MEDS ORDERED: *HR* Rocuronium Bromide 50 MG/5 ML VIAL ONE (16:40)
[2020-10-20] MEDS ORDERED: Acetaminophen IV 1,000 MG/100 ML BAG IVPB ONE (17:30)
[2020-10-20] MEDS ORDERED: *HR* PHENYLEPHRINE 1,000 MCG/10 ML SYRINGE IVP ONE (17:36)
[2020-10-20] MEDS ORDERED: ceFAZolin 2,000 MG in Water for inj. (sterile) 20 ML IVP ONE (17:53)
[2020-10-20] MEDS ORDERED: Sugammadex Sodium 200 MG/2 ML VIAL IV ONE (18:26)
[2020-10-20] MEDS ORDERED: Morphine Sulfate 2 MG/ML SYRINGE IVP PRN (18:35)
[2020-10-20] MEDS ORDERED: Ondansetron 4 MG/2 ML VIAL IVP PRN ×2 (18:35→19:18)
[2020-10-20] MEDS ORDERED: 0.9 % Sodium Chloride 1,000 ML IVC SCH (19:18)
[2020-10-20] MEDS ORDERED: Naloxone 0.4 MG/ML INJ IVP PRN (19:18)
[2020-10-20] MEDS: CeFAZolin 2 GM/120 ML BAG IVPB SCH (23:50)
[2020-10-21] MEDS: Piperacillin/Tazobactam 3.375 GM in 0.9 % Sodium Chloride Mini Bag 100 ML IVPB SCH ×2 (00:35→08:47)
[2020-10-21 05:08] LABS: Basophils % 0.5 %; Mean Corpuscular Volume 97.4 fL (83.0-100.0)
[2020-10-21 05:10] LABS: Basophils # 0.1 K/mcL (0.0-0.2); Eosinophils # 0.3 K/mcL (0.0-0.6); Eosinophils % 3.1 %; Hematocrit 37.4 % (35.3-44.9); Hemoglobin 11.7 g/dL (11.5-15.4); Immature Granulocytes % 0.6 % (0-4); Lymphocytes # 1.2 K/mcL (0.6-4.6); Lymphocytes % 11.7 %; Mean Corpuscular HGB Conc 31.3 g/dL (31.6-35.5); Mean Corpuscular Hemoglobin 30.5 pg (28.0-33.3); Monocytes % 9.4 %; Neutrophils # 7.8 K/mcL (1.6-8.9); Platelet Count 91 K/mcL (140-400); Red Blood Count 3.84 M/mcL (3.82-4.97); Red Cell Distribution Width 13.8 % (11.5-14.5); Segmented Neutrophils % 74.7 %; White Blood Count 10.5 K/mcL (4.3-11.1)
[2020-10-21 05:16] LABS: BUN/Creatinine Ratio 16 (6-26); Blood Urea Nitrogen 10 mg/dL (8-23); Calcium 8.2 mg/dL (8.6-10.3); Carbon Dioxide 25 mEq/L (23-29); Chloride 111 mEq/L (98-107); Glucose 111 mg/dL (70-105); Osmolality,Calculated 294 (280-300); Potassium 4.2 mEq/L (3.5-5.1); Sodium 142 mEq/L (136-145); eGFR For African Americans > 60 (> 60); eGFR For Non-African Americans > 60 (> 60)
[2020-10-21] MEDS ORDERED: Cholecalciferol (D-3) 1,000 UNIT (25MCG) TABLET PO SCH (09:00)
[2020-10-21] MEDS ORDERED: Ascorbic Acid 500 MG TABLET PO SCH (09:00)
[2020-10-21] MEDS ORDERED: Aspirin Enteric Coated 325 MG Tablet PO SCH (09:00)
[2020-10-21] MEDS ORDERED: Folic Acid 1 MG TABLET PO SCH (09:00)
[2020-10-21] MEDS: CeFAZolin 2 GM/120 ML BAG IVPB SCH (09:03)
[2020-10-21 10:29] VITALS: BP 127/62
[2020-10-24] MEDS ORDERED: Ergocalciferol (VIT D2) 50,000 UNIT (1.25MG) CAP PO SCH (09:00)
== END 2020-10-21 15:44 | DRG 481 ==
LOC: EMEROOARM 18:55 → 3ANU 18:55 → 3NENU 23:27 → SUATTDRO 10-19 17:14 → 3NENU 10-19 18:15
PROVIDERS: ADMIT Family Medicine; ATTEND Student in an Organized Health Care Education/Training Program